=== PATIENT | female | born 1990 | race Caucasian/White ===

== ENCOUNTER → 2016-06-07 | Outpatient (REF) ==
--- NOTE | 2016-06-07 10:50 | Diagnostic Imaging Report ---
Three views of the right foot. INDICATION: Injury with pain in the lateral aspect of the foot. FINDINGS: There is a hallux valgus deformity. Otherwise, the alignment is satisfactory. No fracture or dislocation seen. No radiopaque foreign body is noted. IMPRESSION: Hallux valgus. No fracture seen. Dictated by: Dictated on workstation # [id number]
== END | disposition home or self-care (01) ==
LOC: OCC 10:16
PROVIDERS: ATTEND Nurse Practitioner Family
CPT/HCPCS: 73630